=== PATIENT | female | born 1940 | race Caucasian/White ===

== ENCOUNTER 2016-06-14 16:12 | Emergency (ER) | payer MEDICARE, OTHER ==
--- NOTE | 2016-06-14 16:23 | EDM.PDOC ---
ED HPI Trauma - General Chief Complaint: Trauma Stated Complaint: FELL Time Seen by Provider: 06/14/16 16:22 Source: Reports: Patient, Family, RN, RN notes reviewed History Limitations: Reports: No limitations - History of Present Illness INITIAL COMMENTS - FREE TEXT/NARRATIVE: Patient presents to the ED at [facility] after she fell at home. Patient states she was mopping a cement floor. She started to walk across the wet floor , slipped, and fell onto her right hand/wrist, and also hit the right advent/ orbit area. Patient denies any LOC. No previous head injury or trauma. No previous injury or trauma to the right wrist/hand. Symptom Onset Date: 06/14/16 Symptom Onset Time: 15:40 Occurred When: just prior to arrival Occurred Where: home Method of Injury: fall Severity: mild Pain/Injury Location: Reports: head, upper extremity, right Consciousness: Reports: no loss of consciousness, remembers coming to hosp Associated Symptoms: Reports: no other symptoms Allergies/ADRs: Allergies hemant Allergy (Verified 06/14/16 16:35) Cannot Remember dust mites Allergy (Uncoded 06/14/16 16:35) Cannot Remember Home Medications: Ambulatory Orders . [Unable to Verify Home Med List] 06/14/16 [Confirmed 06/14/16] Review of Systems - Review of Systems Review Of Systems: See Below Constitutional: Denies: chills, fever, weakness Eyes: Denies: blurred vision, pain, vision change Ears: Reports: no symptoms Nose: Reports: no symptoms Mouth/Throat: Reports: no symptoms Respiratory: Denies: shortness of breath, cough Cardiovascular: Denies: chest pain, palpitations Musculoskeletal: Reports: arm pain, hand pain, other (head pain/tenderness) Skin: Reports: wound (right advent) Neurological: Reports: no symptoms. Denies: dizziness, headache, numbness, paresthesia, tingling ED EXAM, TRAUMA (MAJOR/MULTI) - Physical Exam Exam: See Below Exam Limited By: No limitations General Appearance: alert, no apparent distress Head: facial abrasions, facial swelling (right hematoma above right orbit), facial tenderness (right advent) Eyes: bilateral eye: EOMI, normal inspection, PERRL Ears: normal external exam, normal canal, hearing grossly normal, normal TMs Nose: normal inspection, normal mucousa, no blood Throat/Mouth: Normal inspection, Normal oropharynx, No airway compromise Neck: non-tender, full range of motion, normal alignment Cardiovascular: regular rate, rhythm Respiratory/Chest: no respiratory distress, lungs clear, normal breath sounds Extremities: pain with movement (right hand/wrist), tenderness (right hand/wrist ) Neurologic: alert, oriented x 3 Skin: Other (bruising to lateral right wrist; abrasion to the volar surface of the right wrist) - [place] Coma Score Best Eye Response ([place]): (4) open spontaneously Best Verbal Response ([place]): (5) oriented Best Motor Response ([place]): (6) obeys commands [place] Total: 15 Course - Vital Signs Last Recorded V/S: Last Vital Signs Temp 37.0 C 06/14/16 16:12 Pulse 88 06/14/16 16:12 Resp 20 06/14/16 16:12 BP 179/82 H 06/14/16 16:12 Pulse Ox - Orders/Labs/Meds Orders: Active Orders 24 hr Category Date Time Status Head wo Cont [CT] Stat Exams 06/14/16 16:31 Taken Max Facial Sinus wo Cont [CT] Stat Exams 06/14/16 16:48 Taken Wrist Comp Min 3V Rt [CR] Stat Exams 06/14/16 16:32 Taken DME for Discharge [COMM] Routine Oth 06/14/16 17:27 Ordered Departure - Departure Time of Disposition: 17:49 Disposition: Home, Self-Care 01 Condition: good Clinical Impression: Fall at home Qualifiers: Encounter type: initial encounter Qualified Code(s): W19.XXXA - Unspecified fall, initial encounter; Y92.099 - Unspecified place in other non-institutional residence as the place of occurrence of the external cause Traumatic hematoma of head Qualifiers: Encounter type: initial encounter Qualified Code(s): S00.93XA - Contusion of unspecified part of head, initial encounter Right wrist injury Qualifiers: Encounter type: initial encounter Qualified Code(s): S69.91XA - Unspecified injury of right wrist, hand and finger(s), initial encounter Instructions: Head Injury, Adult Referrals: Conchita Guerra MD [Primary Care Provider] - Forms: ED Department Discharge Additional Instructions: 1. Stay well hydrated and rest 2. Take OTC pain meds as discussed 3. Rest, elevate, ice right wrist several times a day 4. Keep band aid on at least 24 hours 5. See you Primary as symptoms warrant ED Communication - ED Communication Date/Time Date: 06/14/16 Time Called: 17:45 - Discussed Case With (1) Discussed Case With (1): Radiologist Person/s Notified (1): Omero Thompson - Conversation Summary Radiology Reading Discussed with Radiologist: Yes Summary Comment: CT of Head negative for any acute pathology; Right wrist no fracture/dislocation; CT of Facial bones show old septal fx, nothing acute - Problem List Review Problem List Initiated/Reviewed/Updated: Yes - My Orders Last 24 Hours: My Active Orders 06/14/16 16:31 Head wo Cont [CT] Stat 06/14/16 16:32 Wrist Comp Min 3V Rt [CR] Stat 06/14/16 16:48 Max Facial Sinus wo Cont [CT] Stat 06/14/16 17:27 DME for Discharge [COMM] Routine - Assessment/Plan Last 24 Hours: My Active Orders 06/14/16 16:31 Head wo Cont [CT] Stat 06/14/16 16:32 Wrist Comp Min 3V Rt [CR] Stat 06/14/16 16:48 Max Facial Sinus wo Cont [CT] Stat 06/14/16 17:27 DME for Discharge [COMM] Routine
[2016-06-14 16:50] VITALS: BP 179/82
== END 2016-06-14 18:02 | disposition home or self-care (01) ==
LOC: VM.ED 16:12
DX: S60.211A Contusion of right wrist, initial encounter (principal); S00.93XA Contusion of unspecified part of head, initial encounter; Z91.09 Other allergy status, other than to drugs and biological substances; W19.XXXA Unspecified fall, initial encounter; Y92.009 Unspecified place in unspecified non-institutional (private) residence as the place of occurrence of the external cause
CPT/HCPCS: 70450; 70486; 73110-RT; 99284; 99284-GF

== ENCOUNTER 2016-07-29 07:36 | Day surgery (SDC) | payer MEDICARE, OTHER ==
[~2016-07-29 07:36] MED LIST: Brimonidine 0.2% Ophth Soln 5 ML Bottle ONE; Cataract Ophth Solution EYERT PRN; Hypromellose 2.5% Ophth Soln 15 ML Bottle EYERT PRN; Lactated Ringers 1,000 ML IV SCH; Lidocaine 1% 2 ML ONE; Lidocaine 3.5% Ophth Gel 1 ML Bottle ONE; Povidone-Iodine 5% Sterile Ophth Soln 30 ML Bottle ONE
[2016-07-29] MEDS: Proparacaine 0.5% Ophth Soln 15 ML Bottle EYERT PRN ×2 (07:57→09:15)
[2016-07-29] MEDS ORDERED: Lidocaine 1% PF 2 ML SDV INFILT ONE (09:16)
[2016-07-29] MEDS ORDERED: Chondroitin Sulfate/Hyaluronate Sodium Ophth Inj 0.5 ML Syringe IOCULAR ONE (09:18)
[2016-07-29] MEDS ORDERED: Vancomycin 500 MG SDV EYERT ONE (09:19)
[2016-07-29] MEDS ORDERED: Ciprofloxacin 0.3% Ophth Soln 2.5 ML Bottle EYERT ONE (09:20)
[2016-07-29] MEDS ORDERED: Balanced Salt Solution Ophth Irrig 500 ML Bottle IOCULAR ONE (09:20)
[2016-07-29 09:32] VITALS: BP 165/74
--- NOTE | 2016-07-29 12:38 | OR ---
PREOPERATIVE DIAGNOSIS: Senile nuclear cataract, right eye. POSTOPERATIVE DIAGNOSIS: Pseudophakia, right eye. PROCEDURE PERFORMED: Cataract extraction with intraocular lens implantation by phacoemulsification technique, right eye. ANESTHESIA: Topical anesthesia. ESTIMATED BLOOD LOSS: None. COMPLICATIONS: None. INDICATIONS: The patient is a 76-year-old female who was found to have a senile nuclear cataract, reducing her best corrected visual acuity. After explaining the risks, benefits, and alternatives of cataract surgery, an informed consent was obtained. DESCRIPTION OF PROCEDURE: After identifying the patient in the preoperative area, the patient was brought to the operating room. The patient was prepped and draped in a sterile fashion. A lid speculum was inserted into the eye. The microscope was brought into the field. Lidocaine gel was applied to the external surface of the eye. A paracentesis was made 3 clock hours away from the surgeon's operating hand. The anterior chamber was anesthetized with preservative-free Lidocaine. The anterior chamber was filled with Viscoat. A clear corneal incision was made at the 180-degree meridian with a 2.75 mm keratome. A continuous tear circular capsulorrhexis was performed. The nucleus was hydrodissected with balanced salt solution. The nucleus was sculpted and removed from the eye using a divide and conquer technique with the phacoemulsification handpiece. The residual viscoelastic was removed with the I/A handpiece. The anterior chamber and capsular bag were filled with Amvisc. An NENA lens, model PCB00 with a power of 23.0 Diopters and a serial number of [id number] was injected into the capsular bag. The lens was rotated completely into the capsular bag with a Sinskey hook. The residual viscoelastic was removed with the I/A handpiece. The anterior chamber was filled with balanced salt solution to a physiologic pressure. The corneal wound was closed with stromal hydration and seen to be water tight by Weck-Rosa Isela sponge testing. The patient received a drop of Zymar and Alphagan at the end of the case. There were no complications of this case. The patient will be followed postoperatively by Dr. Jo Bennett. SKA: 07/29/2016 10:03:38 MODL: 07/29/2016 12:31:37 /[id number]
== END 2016-07-29 10:00 | disposition home or self-care (01) ==
LOC: VM.SDS 07:36
PROVIDERS: ATTEND Ophthalmology
DX: H25.11 Age-related nuclear cataract, right eye (principal); Z96.1 Presence of intraocular lens; Z91.09 Other allergy status, other than to drugs and biological substances
CPT/HCPCS: 00142; 66984; A9270; J3370; J7120; C1780

== ENCOUNTER 2016-08-26 12:14 | Day surgery (SDC) | payer MEDICARE, OTHER ==
[~2016-08-26 12:14] MED LIST changes: +Cataract Ophth Solution EYELF PRN; -Cataract Ophth Solution EYERT PRN; +Hypromellose 2.5% Ophth Soln 15 ML Bottle EYELF PRN; -Hypromellose 2.5% Ophth Soln 15 ML Bottle EYERT PRN; -Lactated Ringers 1,000 ML IV SCH; +Sodium Chloride 0.9% 10 ML Syringe FLUSH PRN
[2016-08-26] MEDS: Proparacaine 0.5% Ophth Soln 15 ML Bottle EYELF PRN ×2 (12:45→14:02)
[2016-08-26] MEDS ORDERED: Lidocaine 1% PF 2 ML SDV INJECT ONE (14:03)
[2016-08-26] MEDS ORDERED: Chondroitin Sulfate/Hyaluronate Sodium Ophth Inj 0.5 ML Syringe IOCULAR ONE (14:04)
[2016-08-26] MEDS ORDERED: Ciprofloxacin 0.3% Ophth Soln 2.5 ML Bottle EYELF ONE (14:04)
[2016-08-26] MEDS ORDERED: Vancomycin 500 MG SDV EYELF ONE (14:05)
[2016-08-26] MEDS ORDERED: Balanced Salt Solution Ophth Irrig 500 ML Bottle IOCULAR ONE (14:05)
[2016-08-26 14:18] VITALS: BP 165/76
--- NOTE | 2016-08-27 08:42 | OR ---
PREOPERATIVE DIAGNOSIS: Senile nuclear cataract, left eye. POSTOPERATIVE DIAGNOSIS: Pseudophakia, left eye. PROCEDURE PERFORMED: Cataract extraction with intraocular lens implantation by phacoemulsification technique, left eye. ANESTHESIA: Topical anesthesia. BLOOD LOSS: None. COMPLICATIONS: None. INDICATIONS: The patient is a 76-year-old female, who was found to have a senile nuclear cataract reducing her best corrected visual acuity. After explaining the risks, benefits, and alternatives of cataract surgery, an informed consent was obtained. DESCRIPTION OF PROCEDURE: After identifying the patient in the preoperative area, the patient was brought to the operating room. The patient was prepped and draped in a sterile fashion. A lid speculum was inserted into the eye. The microscope was brought into the field. Lidocaine gel was applied to the external surface of the eye. A paracentesis was made 3 clock hours away from the surgeon's operating hand. The anterior chamber was anesthetized with preservative-free Lidocaine. The anterior chamber was filled with Viscoat. A clear corneal incision was made at the 180-degree meridian with a 2.75mm keratome. A continuous tear circular capsulorrhexis was performed. The nucleus was hydrodissected with balanced salt solution. The nucleus was sculpted and removed from the eye using a divide and conquer technique with the phacoemulsification handpiece. The residual viscoelastic was removed with the I/A handpiece. The anterior chamber and capsular bag were filled with Amvisc. An NENA lens, model ZCB00 with a power of 23.0 diopters and a serial number of [id number] was injected into the capsular bag. The lens was rotated completely into the capsular bag with a Sinskey hook. The residual viscoelastic was removed with the I/A handpiece. The anterior chamber was filled with balanced salt solution to a physiologic pressure. The corneal wound was closed with stromal hydration and seen to be water tight by Weck-Rosa Isela sponge testing. The patient received a drop of Zymar and Alphagan at the end of the case. There were no complications of this case. The patient will be followed postoperatively by Dr. Jo Bennett. SKA: 08/26/2016 15:10:54 MODL: 08/26/2016 22:22:47 /[id number]
== END 2016-08-26 14:55 | disposition home or self-care (01) ==
LOC: VM.SDS 12:14
PROVIDERS: ATTEND Ophthalmology
DX: H25.12 Age-related nuclear cataract, left eye (principal); Z96.1 Presence of intraocular lens; I10 Essential (primary) hypertension; Z91.09 Other allergy status, other than to drugs and biological substances
CPT/HCPCS: 00142; 66984; A9270; C1780; J3370; J7050

== ENCOUNTER 2022-08-24 10:40 | Emergency (ER) | payer MEDICARE, OTHER ==
[2022-08-24] MEDS ORDERED: Sodium Chloride 0.9% 10 ML Syringe FLUSH PRN (10:41)
[2022-08-24 10:56] LABS: BASOPHILS PERCENT AUTO 0.6 % (0.2-1.2); EOSINOPHILS ABSOLUTE AUTO 0.2 x10^3/uL (0.0-0.5); EOSINOPHILS PERCENT AUTO 3.5 % (0.0-4.0); HEMATOCRIT 39.6 % (33.0-47.0); HEMOGLOBIN 13.6 g/dL (12.0-16.0); IMMATURE GRAN ABSOLUTE AUTO 0.01 x10^3/uL (0.00-0.07); LYMPHOCYTES ABSOLUTE AUTO 1.8 x10^3/uL (1.0-4.8); LYMPHOCYTES PERCENT AUTO 29.1 % (25.0-50.0); MEAN CORPUSCULAR HEMOGLOBIN 31.5 pg (26.0-32.0); MEAN CORPUSCULAR HGB CONC 34.3 g/dL (32.0-36.0); MEAN CORPUSCULAR VOLUME 91.7 fL (78.0-93.0); MONOCYTES ABSOLUTE AUTO 0.6 x10^3/uL (0.0-0.8); MONOCYTES PERCENT AUTO 9.1 % (2.0-11.0); NEUTROPHILS ABSOLUTE AUTO 3.6 x10^3/uL (1.8-7.7); NEUTROPHILS PERCENT AUTO 57.5 % (50.0-80.0); PLATELET COUNT,PLT 244 x10^3/uL (130-400); RED BLOOD CELL COUNT 4.32 x10^6/uL (4.00-5.50); WHITE BLOOD CELL COUNT,WBC 6.3 x10^3/uL (4.0-10.0)
[2022-08-24 11:27] LABS: A/G RATIO 0.97; ALANINE AMINOTRANSFERASE,ALT 18 U/L (14-59); ALBUMIN 3.5 g/dL (3.4-5.0); ALKALINE PHOSPHATASE 87 U/L (46-116); ASPARTATE AMNIOTRANSFERASE,AST 13 U/L (15-37); BILIRUBIN TOTAL 0.4 mg/dL (0.2-1.0); BLOOD UREA NITROGEN,BUN 12 mg/dL (7-18); CALCIUM 8.7 mg/dL (8.5-10.1); CARBON DIOXIDE,CO2 27 mmol/L (21-32); CHLORIDE,CL 103 mmol/L (98-107); CREATININE 0.7 mg/dL (0.55-1.02); GLUCOSE RANDOM 146 mg/dL (70-99); MAGNESIUM 1.8 mg/dL (1.8-2.4); PHOSPHORUS 3.6 mg/dL (2.6-4.7); PRO B-TYPE NATRIUR PEPT,BNPPRO 152 pg/mL (<=450); PROTEIN TOTAL,TP 7.1 g/dL (6.4-8.2); SODIUM,NA 138 mmol/L (136-145)
[2022-08-24 11:28] LABS: C-REACTIVE PROTEIN < 0.2 mg/dL (<=0.9); ESTIMATED GFR 85 mL/min (>=60)
[2022-08-24] MEDS: Lactated Ringers 1,000 ML IV ONE (11:37)
[2022-08-24 11:57] VITALS: BP 175/76; PULSE 73
== END 2022-08-24 12:04 | disposition home or self-care (01) ==
LOC: VM.ED 10:40
DX: I10 Essential (primary) hypertension (principal); M62.838 Other muscle spasm; Z91.048 Other nonmedicinal substance allergy status
CPT/HCPCS: 36415; 80053; 83735; 83880; 84100; 84484; 85025; 86140; 93005; 93010; 99284; J7120

== ENCOUNTER 2022-09-06 18:21 | Emergency (ER) | payer MEDICARE, OTHER ==
[2022-09-06] MEDS ORDERED: Sodium Chloride 0.9% 10 ML Syringe FLUSH PRN (18:42)
[2022-09-06] MEDS ORDERED: Labetalol 20 MG/4 ML Syringe IVPUSH ONE ×2 (18:43→20:01)
[2022-09-06 19:00] LABS: BASOPHILS ABSOLUTE AUTO 0.1 x10^3/uL (0.0-0.2); BASOPHILS PERCENT AUTO 0.8 % (0.2-1.2); EOSINOPHILS ABSOLUTE AUTO 0.1 x10^3/uL (0.0-0.5); EOSINOPHILS PERCENT AUTO 1.9 % (0.0-4.0); HEMATOCRIT 40.4 % (33.0-47.0); IMMATURE GRAN ABSOLUTE AUTO 0.01 x10^3/uL (0.00-0.07); LYMPHOCYTES PERCENT AUTO 27.1 % (25.0-50.0); MEAN CORPUSCULAR HEMOGLOBIN 31.4 pg (26.0-32.0); MEAN CORPUSCULAR HGB CONC 34.7 g/dL (32.0-36.0); MEAN CORPUSCULAR VOLUME 90.6 fL (78.0-93.0); MONOCYTES ABSOLUTE AUTO 0.6 x10^3/uL (0.0-0.8); MONOCYTES PERCENT AUTO 7.8 % (2.0-11.0); NEUTROPHILS ABSOLUTE AUTO 4.6 x10^3/uL (1.8-7.7); NEUTROPHILS PERCENT AUTO 62.3 % (50.0-80.0); PLATELET COUNT,PLT 259 x10^3/uL (130-400); RED BLOOD CELL COUNT 4.46 x10^6/uL (4.00-5.50); WHITE BLOOD CELL COUNT,WBC 7.4 x10^3/uL (4.0-10.0)
[2022-09-06 19:18] LABS: A/G RATIO 1.05; ALANINE AMINOTRANSFERASE,ALT 17 U/L (14-59); ALBUMIN 3.9 g/dL (3.4-5.0); ALKALINE PHOSPHATASE 87 U/L (46-116); ASPARTATE AMNIOTRANSFERASE,AST 13 U/L (15-37); BILIRUBIN TOTAL 0.3 mg/dL (0.2-1.0); BLOOD UREA NITROGEN,BUN 11 mg/dL (7-18); CALCIUM 8.7 mg/dL (8.5-10.1); CARBON DIOXIDE,CO2 26 mmol/L (21-32); CHLORIDE,CL 103 mmol/L (98-107); CREATININE 0.7 mg/dL (0.55-1.02); ESTIMATED GFR 85 mL/min (>=60); GLUCOSE RANDOM 106 mg/dL (70-99); MAGNESIUM 2.1 mg/dL (1.8-2.4); PROTEIN TOTAL,TP 7.6 g/dL (6.4-8.2); SODIUM,NA 139 mmol/L (136-145)
[2022-09-06] MEDS ORDERED: amLODIPine 5 MG Tab PO ONE (20:02)
[2022-09-07 03:00] VITALS: BP 168/69; PULSE 71
== END 2022-09-06 20:56 | disposition home or self-care (01) ==
LOC: VM.ED 18:21
DX: I10 Essential (primary) hypertension (principal); Z91.048 Other nonmedicinal substance allergy status; Z79.899 Other long term (current) drug therapy
CPT/HCPCS: 36415; 80053; 83735; 84484; 85025; 93005; 93010; 96374; 96376; 99283-25; 99284; A9270-GY; J3490

== ENCOUNTER 2023-01-09 17:30 | Emergency (ER) | payer MEDICARE, OTHER ==
[2023-01-09 17:59] LABS: BASOPHILS ABSOLUTE AUTO 0.1 x10^3/uL (0.0-0.2); BASOPHILS PERCENT AUTO 0.9 % (0.2-1.2); EOSINOPHILS ABSOLUTE AUTO 0.2 x10^3/uL (0.0-0.5); HEMATOCRIT 39.2 % (33.0-47.0); HEMOGLOBIN 13.5 g/dL (12.0-16.0); IMMATURE GRAN ABSOLUTE AUTO 0.03 x10^3/uL (0.00-0.07); LYMPHOCYTES ABSOLUTE AUTO 1.7 x10^3/uL (1.0-4.8); LYMPHOCYTES PERCENT AUTO 19.5 % (25.0-50.0); MEAN CORPUSCULAR HEMOGLOBIN 31.8 pg (26.0-32.0); MEAN CORPUSCULAR HGB CONC 34.4 g/dL (32.0-36.0); MEAN CORPUSCULAR VOLUME 92.5 fL (78.0-93.0); MONOCYTES ABSOLUTE AUTO 0.7 x10^3/uL (0.0-0.8); MONOCYTES PERCENT AUTO 8.2 % (2.0-11.0); NEUTROPHILS PERCENT AUTO 69.1 % (50.0-80.0); PLATELET COUNT,PLT 298 x10^3/uL (130-400); RED BLOOD CELL COUNT 4.24 x10^6/uL (4.00-5.50); WHITE BLOOD CELL COUNT,WBC 8.7 x10^3/uL (4.0-10.0)
[2023-01-09 18:27] VITALS: BP 130/64; PULSE 93
[2023-01-09 18:29] LABS: APPEARANCE,URINE CLEAR (CLEAR); BILIRUBIN,URINE NEGATIVE (NEGATIVE); COLOR,URINE YELLOW (YELLOW); GLUCOSE,URINE NEGATIVE (NEGATIVE); KETONES,URINE NEGATIVE (NEGATIVE); LEUKOCYTE ESTERASE,URINE NEGATIVE (NEGATIVE); NITRITE,URINE NEGATIVE (NEGATIVE); OCCULT BLOOD,URINE NEGATIVE (NEGATIVE); PROTEIN,URINE NEGATIVE (NEGATIVE); UROBILINOGEN,URINE 0.2 EU/dL (0.2)
[2023-01-09 18:36] LABS: A/G RATIO 0.97; ALBUMIN 3.6 g/dL (3.4-5.0); BILIRUBIN TOTAL 0.3 mg/dL (0.2-1.0); C-REACTIVE PROTEIN 0.2 mg/dL (<=0.30); CALCIUM 8.8 mg/dL (8.5-10.1); CREATININE 0.7 mg/dL (0.55-1.02); MAGNESIUM 1.9 mg/dL (1.8-2.4); POTASSIUM,K 3.9 mmol/L (3.5-5.1); PROTEIN TOTAL,TP 7.3 g/dL (6.4-8.2); TSH ULTRASENSITIVE 1.726 uIU/mL (0.358-3.74)
[2023-01-09 18:40] LABS: ANION GAP 15.9 mmol/L (5-15)
[2023-01-09 18:56] LABS: CORONAVIRUS COVID-19 NAA NEGATIVE (NEGATIVE); INFLUENZA A NAA NEGATIVE (NEGATIVE); INFLUENZA B NAA NEGATIVE (NEGATIVE); RESPIRATORY SYNCYTIAL VIR NAA NEGATIVE (NEGATIVE)
== END 2023-01-09 19:29 | disposition home or self-care (01) ==
LOC: VM.ED 17:30
DX: R42 Dizziness and giddiness (principal); R51.9 Headache, unspecified; R53.83 Other fatigue; I10 Essential (primary) hypertension; Z91.048 Other nonmedicinal substance allergy status; Z79.899 Other long term (current) drug therapy; Z20.822 Contact with and (suspected) exposure to COVID-19
CPT/HCPCS: 0241U; 36415; 70450; 80053; 81003; 83735; 84443; 84484; 85025; 86140; 93005; 99284